=== PATIENT | male | born 1970 | race Asian ===

== ENCOUNTER 2021-03-12 12:33 | Emergency (ER) | payer SELFPAY ==
[2021-03-12 13:58] LABS: HEMATOCRIT 50.3 % (39.0-50.0); HEMOGLOBIN 16.4 g/dl (14.0-18.0); IMMATURE GRANULOCYTES 0.1 % (0.0-5.0); MEAN CELL VOLUME 93.8 fL CALC (80.0-100.0); MEAN CORPUSCULAR HGB 30.6 pG CALC (26.0-32.0); MEAN CORPUSCULAR HGB CONC 32.6 g/dL CAL (32.0-36.0); NEUT# 6.41 thou/uL (1.82-7.42); RED BLOOD COUNT 5.36 mill/uL (4.70-6.10); RED CELL DISTRI WIDTH 11.9 % (11.5-15.5)
[2021-03-12 13:59] LABS: URINE BILIRUBIN - DIPSTICK NEGATIVE (NEGATIVE); URINE BLOOD DIPSTICK NEGATIVE (NEGATIVE); URINE COLOR YELLOW; URINE GLUCOSE - DIPSTICK NEGATIVE (NEGATIVE); URINE KETONE >=80 mg/dL (NEGATIVE); URINE LEUK ESTERASE NEGATIVE (NEGATIVE); URINE PROTEIN - DIPSTICK NEGATIVE (NEG-TRACE)
[2021-03-12 14:02] LABS: URINE NITRITE - DIPSTICK NEGATIVE (Negative)
[2021-03-12 14:27] LABS: ALKALINE PHOSPHATASE 83 u/l (38-126); AMYLASE 129 u/l (30-110); ANION GAP 13 (6-22 (CALC)); BILIRUBIN, TOTAL 1.1 mg/dL (0.0-1.4); BUN 19 mg/dL (9-20); BUN/CREATININE RATIO 22 (12-20 (CALC)); CARBON DIOXIDE 34 mmol/l (22-30); CHLORIDE 100 mmol/l (95-108); CREATININE 0.9 mg/dL (0.7-1.3); GFR > 60 ML/MIN (>=60 (CALC)); GFR FOR AFR.AMER. > 60 ML/MIN (>=60 (CALC)); LIPASE 104 u/l (23-300); POTASSIUM 3.9 mmol/l (3.5-5.1); SGOT/AST 53 u/l (17-59); SODIUM 143 mmol/l (137-146); TOTAL PROTEIN 9.6 g/dL (6.3-8.2)
[2021-03-12 14:31] LABS: ETHYL ALCOHOL < 10 mg/dl (0-30)
[2021-03-12 21:30] VITALS: BP 134/82
== END 2021-03-12 21:30 | disposition designated cancer center or children's hospital (05) | DRG 392 ==
LOC: ED 12:33
DX: R11.2 Nausea with vomiting, unspecified (principal); F23 Brief psychotic disorder; Z20.822 Contact with and (suspected) exposure to COVID-19
CPT/HCPCS: S0164